=== PATIENT | female | born 1940 | race Caucasian/White ===

== ENCOUNTER 2020-03-05 17:54 | Observation (INO) ==
[2020-03-05] MEDS ORDERED: NS 0.9% 1000 ml BAG 1,000 ML IV ONE (18:22)
[2020-03-05 18:49] LABS: ABS Eosinophils 0.2 10^3/ul (0-0.6); ABS Lymphocytes 0.6 10^3/ul (1.0-4.8); ABS Monocytes 0.8 10^3/ul (0-0.8); Eosinophil % 2.8 %; Hematocrit 46 % (35-47); Hemoglobin 16.1 g/dL (12.0-16.0); Lymphocyte % 8.2 %; Mean Corpuscular HGB Conc 35 g/dL (31-36); Mean Corpuscular Hemoglobin 33 pg (27-31); Mean Corpuscular Volume 94 fL (80-97); Mean Platelet Volume 6.8 fL (7.4-10.4); Platelet Count 286 10^3/uL (150-450); Red Blood Count 4.85 10^6 /uL (3.70-4.87); Red Cell Distribution Width 12 % (10-15); White Blood Count 6.9 10^3/uL (3.5-10.8)
[2020-03-05 19:15] LABS: ALT 32 U/L (7-52); AST 32 U/L (13-39); Albumin 4.2 g/dL (3.2-5.2); Albumin/Globulin Ratio 1.6 (1-3); Alkaline Phosphatase 69 U/L (34-104); Anion Gap 16 mmol/L (2-11); BUN/Creatinine Ratio 13.2 (8-20); Blood Urea Nitrogen 10 mg/dL (6-24); CO2 Carbon Dioxide 20 mmol/L (22-32); Calcium 9.1 mg/dL (8.6-10.3); Chloride 92 mmol/L (101-111); EGFR African American 89.3 (>60); EGFR Non-African American 73.8 (>60); Globulin 2.6 g/dL (2-4); Glucose 128 mg/dL (70-100); Magnesium 1.3 mg/dL (1.9-2.7); Potassium 3.6 mmol/L (3.5-5.0); Sodium 128 mmol/L (135-145); Total Protein 6.8 g/dL (6.4-8.9)
[2020-03-05] MEDS ORDERED: Magnesium Sulfate IV 1GM/100ML 1 GM/100 ML BAG IV ONE (19:17)
[2020-03-05 19:20] LABS: Troponin I 0.05 ng/mL (<0.03)
[2020-03-05 19:43] LABS: TSH (Thyroid Stimulating Horm) 2.18 mcIU/mL (0.34-5.60)
[2020-03-05 20:49] LABS: Urine Appearance Cloudy; Urine Bilirubin Negative (Negative); Urine Blood 2+ (Negative); Urine Color Yellow; Urine Glucose 1+(50 mg/dL) (Negative); Urine Ketones 2+ (Negative); Urine Nitrite Negative (Negative); Urine Protein 2+(100 mg/dL) (Negative); Urine Specific Gravity 1.013 (1.010-1.030); Urine Urobilinogen Negative (Negative)
[2020-03-05 21:02] LABS: Urine Bacteria Absent (Absent); Urine Red Blood Cell 2+(6-10/hpf) (Absent); Urine Squamous Epithelial Cell Present (Absent); Urine White Blood Cell Trace(0-5/hpf) (Absent)
[2020-03-05] MEDS ORDERED: cefTRIAXone 1 gm/50 mL NS BAG 1 GM/50 ML BAG IV ONE ×2 (21:02→22:30)
[2020-03-05] MEDS ORDERED: Magnesium Sulfate 2 gm BAG 2 GM/50 ML BAG IVPB ONE (21:26)
[2020-03-05 22:33] LABS: Folate 15.91 ng/mL (>3.99)
[2020-03-05 22:39] LABS: Troponin I 0.04 ng/mL (<0.03)
[2020-03-05] MEDS: NS 0.9% 1000 ml BAG 1,000 ML IV SCH (23:59)
[2020-03-06 01:46] LABS: Troponin I 0.04 ng/mL (<0.03)
[2020-03-06 07:07] LABS: ABS Eosinophils 0.2 10^3/ul (0-0.6); ABS Lymphocytes 0.7 10^3/ul (1.0-4.8); ABS Monocytes 0.7 10^3/ul (0-0.8); Eosinophil % 4.6 %; Hematocrit 40 % (35-47); Hemoglobin 13.9 g/dL (12.0-16.0); Lymphocyte % 13.7 %; Mean Corpuscular HGB Conc 35 g/dL (31-36); Mean Corpuscular Hemoglobin 33 pg (27-31); Mean Corpuscular Volume 95 fL (80-97); Mean Platelet Volume 6.8 fL (7.4-10.4); Platelet Count 220 10^3/uL (150-450); Red Blood Count 4.25 10^6 /uL (3.70-4.87); Red Cell Distribution Width 13 % (10-15); White Blood Count 5.4 10^3/uL (3.5-10.8)
[2020-03-06 07:28] LABS: BUN/Creatinine Ratio 18.3 (8-20); Calcium 8.1 mg/dL (8.6-10.3); EGFR African American 117.3 (>60); EGFR Non-African American 96.9 (>60); HDL Cholesterol 50.1 mg/dL; Magnesium 2.3 mg/dL (1.9-2.7); Potassium 3.3 mmol/L (3.5-5.0)
[2020-03-06 07:30] LABS: CKMB ng/mL 2.5 ng/mL (0.6-6.3)
[2020-03-06] MEDS: NS 0.9% 1000 ml BAG 1,000 ML IV SCH (14:29)
[2020-03-06] MEDS: cefTRIAXone ADVAN VIAL 1 GM in NS 0.9% 50 ML 50 ML IVPB SCH (22:31)
[2020-03-07] MEDS: NS 0.9% 1000 ml BAG 1,000 ML IV SCH ×2 (06:05→19:52)
[2020-03-07] MEDS ORDERED: Potassium Chlor 20 meq TAB.ER PO ONE (07:30)
[2020-03-07 07:47] LABS: ABS Basophils 0.1 10^3/ul (0-0.2); ABS Eosinophils 0.3 10^3/ul (0-0.6); ABS Lymphocytes 1.1 10^3/ul (1.0-4.8); ABS Monocytes 0.6 10^3/ul (0-0.8); BUN/Creatinine Ratio 15.2 (8-20); Calcium 8.1 mg/dL (8.6-10.3); EGFR African American 159.4 (>60); EGFR Non-African American 131.7 (>60); Hematocrit 39 % (35-47); Hemoglobin 13.6 g/dL (12.0-16.0); Mean Corpuscular HGB Conc 35 g/dL (31-36); Mean Corpuscular Hemoglobin 33 pg (27-31); Mean Corpuscular Volume 95 fL (80-97); Mean Platelet Volume 7.4 fL (7.4-10.4); Platelet Count 239 10^3/uL (150-450); Potassium 3.2 mmol/L (3.5-5.0); Red Blood Count 4.08 10^6 /uL (3.70-4.87); Red Cell Distribution Width 12 % (10-15)
[2020-03-07 07:48] LABS: Eosinophil % 5.3 %; Nucleated Red Blood Cells % 0.1
[2020-03-07] MEDS: Potassium Chlor 20 meq TAB.ER PO SCH ×2 (10:24→19:52)
[2020-03-07] MEDS: cefTRIAXone ADVAN VIAL 1 GM in NS 0.9% 50 ML 50 ML IVPB SCH (22:25)
[2020-03-07] MEDS ORDERED: hydrALAZINE 20 mg/ml 1 ML Vial IV IV SLOW PU PRN ×2 (23:46→23:57)
[2020-03-08 07:04] LABS: BUN/Creatinine Ratio 11.1 (8-20); Calcium 8.5 mg/dL (8.6-10.3); EGFR African American 163.5 (>60); EGFR Non-African American 135.1 (>60)
[2020-03-08] MEDS ORDERED: Enoxaparin 40 MG/0.4 ML SYR SUBCUT SCH (09:00)
[2020-03-08 11:50] VITALS: BP 159/94
== END 2020-03-08 13:40 | disposition home or self-care (01) ==
LOC: ED 17:54 → MEDTELE 17:54
PROVIDERS: ADMIT Nurse Practitioner; ATTEND Hospitalist